=== PATIENT | female | born 1995 | race Hispanic/Latino ===

== ENCOUNTER 2017-05-27 10:36 | Emergency (ER) | payer OTHER ==
[2017-05-27 12:14] VITALS: BP 125/76
--- NOTE | 2017-05-27 12:41 | Emergency Department Report ---
Minor Respiratory - HPI Chief Complaint: Sore Throat Stated Complaint: SORE THROAT Time Seen by Provider: 05/27/17 12:35 Duration: 2 Days Pain Location: Throat Severity: mild Minor Respiratory: Yes Sore Throat, Yes Able to Tolerate Fluids, Yes Sick Contacts, No Rhinorrhea, No Ear Pain, No Cough, No Hemoptysis, No Chest Pain, No Shortness of Breath, No Fever ED Review of Systems ROS: Stated complaint: SORE THROAT Other details as noted in HPI Comment: All other systems reviewed and negative ENT: throat pain ED Past Medical Hx - Past Medical History Previous Medical History?: No Hx Seizures: Yes Additional medical history: autism. denies any home meds - Social History Smoking Status: Never Smoker Substance Use Type: None - Medications Home Medications: Home Medications Medication Instructions Recorded Confirmed Last Taken Type Amoxicillin 500 mg PO BID #20 capsule 05/27/17 Unknown Rx Minor Respiratory Exam - Exam General: Vital signs noted. No distress. Alert and acting appropriately. HEENT: Yes Pharyngeal Erythema, Yes Moist Mucous Membranes, No Pharyngeal Exudates, No Rhinorrhea, No Conjuctival Injection, No Frontal Tenderness, No Maxillary Tenderness Ear: Neither TM Bulge, Neither TM Erythema, Neither EAC Pain, Neither EAC Discharge Neck: Yes Supple, No Adenopathy Lungs: Yes Good Air Exchange, No Wheezes, No Ronchi, No Stridor, No Cough, No Labored Respirations, No Retractions, No Use of Accessory Muscles, No Other Abnormal Lung Sounds Heart: Yes Regular, No Murmur Abdomen: Yes Normal Bowel Sounds, No Tenderness, No Peritoneal Signs Skin: No Rash, No Edema Neurologic: Alert and oriented, no deficits. Musculoskeletal: Unremarkable. ED Course Vital Signs 05/27/17 12:12 Temperature 97.2 F L Pulse Rate 64 Respiratory 16 Rate Blood Pressure 125/76 O2 Sat by Pulse 99 Oximetry - Reevaluation(s) Reevaluation #1: 05/27/17 12:38 to er w 1 day hx sore throat no fever hoarseness no dental pain no abscess no sinus tenderness around kids who have been ill taking po dc home w dc poc ED Medical Decision Making - Medical Decision Making see note - Differential Diagnosis urti Critical care attestation.: If time is entered above; I have spent that time in minutes in the direct care of this critically ill patient, excluding procedure time. ED Disposition Clinical Impression: Pharyngitis Disposition: DC- TO HOME OR SELFCARE Is pt being admited?: No Does the pt Need Aspirin: No Condition: Stable Instructions: Pharyngitis (ED) Additional Instructions: new tooth brush motrin or tylenol for pain or fever med as ordered today Referrals: SUNIL COOPER MD [Staff Physician] - 3-5 Days Time of Disposition: 12:39
== END 2017-05-27 13:15 | disposition home or self-care (01) ==
LOC: ED 10:36
DX: J02.9 Acute pharyngitis, unspecified (principal); R56.9 Unspecified convulsions
CPT/HCPCS: 99282

== ENCOUNTER 2017-07-10 09:17 | Emergency (ER) | payer SELFPAY ==
--- NOTE | 2017-07-10 10:31 | Cat Scan Report ---
CT HEAD WITHOUT CONTRAST: 07/10/17 09:17:00 CLINICAL: Headache. TECHNIQUE: 2.5-mm noncontrast scans. COMPARISON:None FINDINGS: The ventricles and sulci are normal for age. No abnormal density. No mass or mass effect. No hemorrhage, edema or extra-axial collection. The sinuses are clear. Normal orbits and soft tissues. The calvarium and skull base are intact. IMPRESSION: Normal head CT.
[2017-07-10] MEDS ORDERED: MOTRIN PO ONE (10:58)
[2017-07-10] MEDS ORDERED: MOTRIN ONE (11:00)
[2017-07-10] MEDS ORDERED: TYLENOL #3 PO ONE (11:56)
--- NOTE | 2017-07-10 12:01 | Emergency Department Report ---
HPI - General Chief Complaint: Headache Time Seen by Provider: 07/10/17 11:56 ED Past Medical Hx - Past Medical History Previous Medical History?: No Hx Seizures: Yes Additional medical history: autism. denies any home meds - Surgical History Past Surgical History?: No - Social History Smoking Status: Never Smoker Substance Use Type: None - Medications Home Medications: Home Medications Medication Instructions Recorded Confirmed Last Taken Type Amoxicillin 500 mg PO BID #20 capsule 05/27/17 Unknown Rx ED Review of Systems ROS: Stated complaint: HEADACHE Other details as noted in HPI Physical Exam - Physical Exam Vital Signs: Vital Signs 07/10/17 09:28 Pulse Rate 82 Respiratory 16 Rate O2 Sat by Pulse 99 Oximetry ED Course Vital Signs 07/10/17 09:28 Pulse Rate 82 Respiratory 16 Rate O2 Sat by Pulse 99 Oximetry Critical care attestation.: If time is entered above; I have spent that time in minutes in the direct care of this critically ill patient, excluding procedure time. ED Disposition Condition: Stable
== END 2017-07-10 12:18 | disposition home or self-care (01) ==
LOC: ED 09:17
DX: R51 Headache (principal)
CPT/HCPCS: 70450

== ENCOUNTER 2017-07-10 17:12 | Emergency (ER) | payer SELFPAY ==
[2017-07-10 17:33] VITALS: BP 111/69
[2017-07-10 18:23] LABS: Basophils % (Auto) 0.2 % (0.0-1.8); Eosinophils % (Auto) 0.1 % (0.0-4.3); Hemoglobin 13.1 gm/dl (10.1-14.3); Lymphocytes # (Auto) 0.7 K/mm3 (1.2-5.4); Lymphocytes % (Auto) 6.8 % (13.4-35.0); Mean Corpuscular HGB Conc 35 % (30-34); Mean Corpuscular Hemoglobin 31 pg (28-32); Mean Corpuscular Volume 91 fl (79-97); Monocytes # (Auto) 0.6 K/mm3 (0.0-0.8); Monocytes % (Auto) 6.1 % (0.0-7.3); Platelet Count 195 K/mm3 (140-440); Red Blood Count 4.17 M/mm3 (3.65-5.03); Red Cell Distribution Width 13.3 % (13.2-15.2)
[2017-07-10 18:40] LABS: Alanine Aminotransferase 36 units/L (7-56); Albumin 4.4 g/dL (3.9-5); BUN/Creatinine Ratio 24; Blood Urea Nitrogen 12 mg/dL (7-17); Calcium 8.9 mg/dL (8.4-10.2); Hemolysis Index 12
[2017-07-10 19:21] LABS: Bilirubin,Urine NEG (Negative); Blood,Urine NEG (Negative); Color,Urine Yellow (Yellow); Mucus,Urine FEW /HPF; Nitrite,Urine NEG (Negative); Urobilinogen,Urine < 2.0 mg/dL (<2.0)
[2017-07-10 19:25] LABS: HCG Qualitative,Urine Negative (Negative)
== END 2017-07-11 03:00 | disposition left against medical advice (07) ==
LOC: ED 17:12
DX: R11.2 Nausea with vomiting, unspecified (principal); Z53.21 Procedure and treatment not carried out due to patient leaving prior to being seen by health care provider
CPT/HCPCS: 36415; 80053; 81001; 81025; 85025